=== PATIENT | female | born 1960 | race Caucasian/White ===

== ENCOUNTER 2017-03-20 07:22 | Emergency (ER) | payer OTHER ==
[2017-03-20 08:12] VITALS: BP 135/65
--- NOTE | 2017-03-20 08:34 | UC ---
Complaint Female HPI - HPI Summary HPI Summary: complaint of pain and burning on urination that started 2 days ago increased frequency and urgency denies fever denies abdominal pain hx of chronic back pain hasn't taken any medication for symptoms - History Of Current Complaint Chief Complaint: UCGU Stated Complaint: UTI Time Seen by Provider: 03/20/17 08:26 Hx Obtained From: Patient - Allergies/Home Medications Allergies/Adverse Reactions: Allergies Allergy/AdvReac Type Severity Reaction Status Date / Time Sulfa Antibiotics Allergy Rash Verified 03/20/17 08:04 PMH/Surg Hx/FS Hx/Imm Hx Previously Healthy: Yes - chronic back pain Cardiovascular History: Hypertension - Surgical History Surgical History: Yes Surgery Procedure, Year, and Place: APPY 64;[facility] 90'S; - Family History Known Family History: Positive: None Negative: Cardiac Disease, Hypertension, Diabetes - Social History Occupation: Employed Full-time Lives: With Family Alcohol Use: Occasionally Substance Use Type: None Smoking Status (MU): Never Smoked Tobacco - Immunization History Vaccination Up to Date: Yes Review of Systems Constitutional: Negative Skin: Negative Eyes: Negative ENT: Negative Respiratory: Negative Cardiovascular: Negative Gastrointestinal: Negative Genitourinary: Dysuria, Frequency, Urgency Motor: Negative Neurovascular: Negative Musculoskeletal: Other: - lower back pain Neurological: Negative Psychological: Negative All Other Systems Reviewed And Are Negative: Yes Physical Exam Triage Information Reviewed: Yes Appearance: No Pain Distress, Well-Nourished Vital Signs: Initial Vital Signs Temp 96.9 F 03/20/17 08:00 Pulse 51 03/20/17 08:00 Resp 16 03/20/17 08:00 Pulse Ox 100 03/20/17 08:00 Vital Signs Reviewed: Yes Eyes: Positive: Conjunctiva Clear ENT: Positive: Pharynx normal, TMs normal Neck: Positive: No Lymphadenopathy Respiratory: Positive: Lungs clear, Normal breath sounds, No respiratory distress, No accessory muscle use Cardiovascular: Positive: RRR, No Murmur, Pulses Normal Abdomen Description: Positive: Nontender, Soft. Negative: CVA Tenderness (R), CVA Tenderness (L), Distended, Guarding Bowel Sounds: Positive: Present Musculoskeletal: Positive: No Edema Neurological: Positive: Alert Psychological Exam: Normal Skin Exam: Normal Complaint Female Dx - Course Course Of Treatment: exam completed. UA positive for lueks, blood. will treat with macrobid and pyridium. followup with PCP - Differential Dx/Diagnosis Differential Diagnosis/HQI/PQRI: Urinary Tract Infection Provider Diagnoses: UTI Discharge - Discharge Plan Condition: Stable Disposition: HOME Prescriptions: Nitrofurantoin Monohyd Macro [Macrobid] 100 mg PO BID #10 cap Phenazopyridine TAB* [Pyridium 100 mg TAB*] 100 mg PO TID #6 tab Patient Education Materials: Urinary Tract Infection in Women (ED) Referrals: Rosita King MD [Primary Care Provider] - Additional Instructions: Please start antibiotic and pyridium as directed Increase fluids and rest Take acetaminophen or ibuprofen for fever or pain Please review your discharge instructions. If your symptoms do not improve please call your primary care provider or return to urgent care.
== END 2017-03-20 08:40 | disposition home or self-care (01) ==
LOC: UCEAST 07:22
DX: N39.0 Urinary tract infection, site not specified (principal)
CPT/HCPCS: 81003; 87077; 87086; 87186; 99212; G0463

== ENCOUNTER 2018-03-07 10:04 | Emergency (ER) | payer OTHER ==
[2018-03-07 10:16] VITALS: BP 112/64
--- NOTE | 2018-03-07 10:24 | UC ---
Complaint Female HPI - HPI Summary HPI Summary: Patient urgent care today with 2-3 days of urinary pain and burning urgency and frequency. Denies back pain denies fevers chills nausea and vomiting. Nayan neck tract infection was over a year ago. Patient has been taking Azo with relief of discomfort - History Of Current Complaint Chief Complaint: UCGU Stated Complaint: BACK PAIN,FREQUENT URINATION Time Seen by Provider: 03/07/18 10:18 Hx Obtained From: Patient ?: No Onset/Duration: Sudden Onset, Lasting Days - 2-3, Still Present Timing: Constant Pain Intensity: 6 Pain Scale Used: 0-10 Numeric Character: Burning Aggravating Factor(s): Urination Alleviating Factor(s): Meds - Azo - Allergies/Home Medications Allergies/Adverse Reactions: Allergies Allergy/AdvReac Type Severity Reaction Status Date / Time SULFA ANTIBIOTICS Allergy Rash Uncoded 03/07/18 10:16 Home Medications: Home Medications Metoprolol Succinate XL TAB* [Toprol XL TAB*] 25 mg PO DAILY 03/07/18 [History Confirmed 03/07/18] PMH/Surg Hx/FS Hx/Imm Hx Previously Healthy: No Cardiovascular History: Hypertension - Surgical History Surgical History: None Surgery Procedure, Year, and Place: APPY 64;[place] 90'S; - Family History Known Family History: Positive: None Negative: Cardiac Disease, Hypertension, Diabetes - Social History Occupation: Employed Full-time Lives: With Family Alcohol Use: Occasionally Substance Use Type: None Smoking Status (MU): Never Smoked Tobacco - Immunization History Vaccination Up to Date: Yes Review of Systems Constitutional: Negative Skin: Negative Eyes: Negative ENT: Negative Respiratory: Negative Cardiovascular: Negative Gastrointestinal: Negative Genitourinary: Dysuria, Frequency, Urgency Motor: Negative Neurovascular: Negative Musculoskeletal: Negative Neurological: Negative Psychological: Negative Is Patient Immunocompromised?: No All Other Systems Reviewed And Are Negative: Yes Physical Exam Triage Information Reviewed: Yes Appearance: Well-Appearing, No Pain Distress, Well-Nourished Vital Signs: Initial Vital Signs Temp 97 F 03/07/18 10:14 Pulse 73 03/07/18 10:14 Resp 16 03/07/18 10:14 BP 112/64 03/07/18 10:14 Pulse Ox 99 03/07/18 10:14 Vital Signs Reviewed: Yes Eye Exam: Normal Eyes: Positive: Conjunctiva Clear ENT Exam: Normal ENT: Positive: Normal ENT inspection, Hearing grossly normal. Negative: Trismus , Muffled voice, Hoarse voice Dental Exam: Normal Neck exam: Normal Neck: Positive: Supple, Nontender Respiratory Exam: Normal Respiratory: Positive: Chest non-tender, No respiratory distress, No accessory muscle use Cardiovascular Exam: Normal Cardiovascular: Positive: RRR, Brisk Capillary Refill Abdominal Exam: Other Abdomen Description: Positive: No Organomegaly, Soft, Other: - suprapubic discomfort. Negative: CVA Tenderness (R), CVA Tenderness (L) Bowel Sounds: Positive: Present Musculoskeletal Exam: Normal Musculoskeletal: Positive: Strength Intact, ROM Intact, No Edema Neurological Exam: Normal Neurological: Positive: Alert, Muscle Tone Normal Psychological Exam: Normal Skin Exam: Normal Complaint Female Dx - Course Course Of Treatment: Will send urine for culture, this patient took Azo this morning. We'll treat with Macrobid based on previous culture results and patient's allergy to sulfa. Increase fluids Tylenol ibuprofen Azo for pain and discomfort follow with PCP to emergency department for increasing pain and flank pain nausea vomiting or fevers - Differential Dx/Diagnosis Provider Diagnoses: uti Discharge - Sign-Out/Discharge Documenting (check all that apply): Discharge/Admit/Transfer - Discharge Plan Condition: Stable Disposition: HOME Prescriptions: Nitrofurantoin Monohyd/M-Cryst [Macrobid 100 mg Capsule] 100 mg PO BID #10 cap Patient Education Materials: Phenazopyridine (By mouth), Urinary Tract Infection in Women (ED) Referrals: Rosita King MD [Primary Care Provider] - If Needed - Billing Disposition and Condition Condition: STABLE Disposition: Home
--- NOTE | 2018-03-09 15:32 | UC ---
- Progress Note Progress Note: Final urine culture with sens to Macrobid - no change. Discharge - Sign-Out/Discharge Documenting (check all that apply): Post-Discharge Follow Up - Discharge Plan Condition: Stable Disposition: HOME Prescriptions: Nitrofurantoin Monohyd/M-Cryst [Macrobid 100 mg Capsule] 100 mg PO BID #10 cap Patient Education Materials: Phenazopyridine (By mouth), Urinary Tract Infection in Women (ED) Referrals: Rosita King MD [Primary Care Provider] - If Needed - Billing Disposition and Condition Condition: STABLE Disposition: Home
== END 2018-03-07 10:29 | disposition home or self-care (01) ==
LOC: UCEAST 10:04
DX: N39.0 Urinary tract infection, site not specified (principal); I10 Essential (primary) hypertension; Z88.2 Allergy status to sulfonamides
CPT/HCPCS: 87077; 87086; 87186; 99212; G0463

== ENCOUNTER 2018-07-12 09:15 | Emergency (ER) | payer OTHER ==
[2018-07-12 09:37] VITALS: BP 122/63
--- NOTE | 2018-07-12 10:29 | UC ---
Throat Pain/Nasal Oli HPI - HPI Summary HPI Summary: 58-year-old woman here with a chief complaint of sinus pressure cough runny nose chest congestion and chest tightness. Patient's been sick for about 5 days. She feels like the infection is going into her chest. She started taking Symbicort as she's had some respiratory issues in the past. She's also taking DayQuil which helped somewhat the symptoms. She does feel short of breath and is having a hard time getting the sputum up from her chest. She has had fevers. - History of Current Complaint Chief Complaint: UCGeneralIllness Stated Complaint: COUGH,CONGESTION Time Seen by Provider: 07/12/18 10:15 Pain Intensity: 6 - Allergies/Home Medications Allergies/Adverse Reactions: Allergies Allergy/AdvReac Type Severity Reaction Status Date / Time SULFA ANTIBIOTICS Allergy Rash Uncoded 07/12/18 09:33 Home Medications: Home Medications Acetaminophen [Extra Strength Non-Aspirin] 650 mg PO ONCE PRN 07/12/18 [History Confirmed 07/12/18] Budesonide/Formote 80/4.5(NF) [Symbicort 80/4.5 (NF)] 2 puff INH BID 07/12/18 [ History Confirmed 07/12/18] Cholecalciferol (Vitamin D3) [Vitamin D3] 1,000 unit PO DAILY 07/12/18 [History Confirmed 07/12/18] Dm/Acetaminophen/Doxylamine [Night Cold-Flu Relief Liq Gel] 1 each PO ONCE PRN 07/12/18 [History Confirmed 07/12/18] PMH/Surg Hx/FS Hx/Imm Hx Cardiovascular History: Hypertension, Other - BIGEMINY Respiratory History: Asthma - Surgical History Surgical History: Yes Surgery Procedure, Year, and Place: APPY 64;[place] 90'S; - Family History Known Family History: Positive: None Negative: Cardiac Disease, Hypertension, Diabetes - Social History Alcohol Use: Occasionally Substance Use Type: None Smoking Status (MU): Never Smoked Tobacco - Immunization History Vaccination Up to Date: Yes Review of Systems All Other Systems Reviewed And Are Negative: Yes Constitutional: Positive: Fever Skin: Positive: Negative Eyes: Positive: Negative ENT: Positive: Sore Throat, Nasal Discharge, Sinus Congestion, Sinus Pain/ Tenderness Respiratory: Positive: Shortness Of Breath, Cough Cardiovascular: Positive: Negative Gastrointestinal: Positive: Negative Motor: Positive: Negative Neurovascular: Positive: Negative Musculoskeletal: Positive: Negative Neurological: Positive: Negative Psychological: Positive: Negative Is Patient Immunocompromised?: No Physical Exam Triage Information Reviewed: Yes Appearance: No Pain Distress, Well-Nourished, Ill-Appearing - MILD Vital Signs: Initial Vital Signs Temp 97.6 F 07/12/18 09:28 Pulse 78 07/12/18 09:28 Resp 18 07/12/18 09:28 BP 122/63 07/12/18 09:28 Pulse Ox 99 07/12/18 09:28 Eye Exam: Normal Eyes: Positive: Conjunctiva Clear ENT: Positive: Pharyngeal erythema, Nasal congestion, Nasal drainage, TMs normal Neck exam: Normal Neck: Positive: Supple Respiratory: Positive: Lungs clear, Normal breath sounds, No respiratory distress Cardiovascular Exam: Normal Cardiovascular: Positive: RRR Musculoskeletal Exam: Normal Musculoskeletal: Positive: Strength Intact, ROM Intact Neurological Exam: Normal Neurological: Positive: Alert, Muscle Tone Normal Psychological Exam: Normal Psychological: Positive: Age Appropriate Behavior Skin Exam: Normal Throat Pain/Nasal Course/Dx - Course Course Of Treatment: DISCUSSED VIRAL VERSES BACTERIAL INFECTIONS AND THE ROLE OF ANTIBIOTIS. THE PATIENT PREFERS TO BE ON ANTIBIOTICS AT THIS TIME. - Differential Dx/Diagnosis Provider Diagnoses: BRONCHITIS WITH BRONCHOSPASM Discharge - Sign-Out/Discharge Documenting (check all that apply): Patient Departure All imaging exams completed and their final reports reviewed: No Studies - Discharge Plan Condition: Stable Disposition: HOME Prescriptions: Albuterol HFA INHALER* [Ventolin HFA Inhaler*] 2 puff INH Q4H PRN #1 mdi PRN Reason: Wheezing Azithromyxin MAEVE (NF) [Z-Maeve (Zithromax) 250 mg tabs #6] 2 tab PO .TODAY, THEN 1 DAILY #6 tab Patient Education Materials: Acute Bronchitis (ED), Bronchospasm (ED) Referrals: Rosita King MD [Primary Care Provider] - - Billing Disposition and Condition Condition: STABLE Disposition: Home
== END 2018-07-12 10:45 | disposition home or self-care (01) ==
LOC: UCEAST 09:15
DX: J40 Bronchitis, not specified as acute or chronic (principal); J98.01 Acute bronchospasm; J45.909 Unspecified asthma, uncomplicated; Z88.2 Allergy status to sulfonamides
CPT/HCPCS: 99212; G0463

== ENCOUNTER 2019-02-18 07:20 | Emergency (ER) | payer OTHER ==
[2019-02-18 07:33] VITALS: BP 110/57
--- NOTE | 2019-02-18 08:26 | UC ---
Complaint Female HPI - HPI Summary HPI Summary: 58-year-old female comes in with a chief complaint of burning with urination and urinary urgency since yesterday. No fevers or chills. She does feel some bladder spasm when she urinates otherwise she has no abdominal pain no flank pain. Feels well otherwise. Patient reports she's had urinary tract infections before and this is what it feels like. - History Of Current Complaint Chief Complaint: UCGU Stated Complaint: URINARY ISSUE Time Seen by Provider: 02/18/19 08:19 Pain Intensity: 5 - Allergies/Home Medications Allergies/Adverse Reactions: Allergies Allergy/AdvReac Type Severity Reaction Status Date / Time SULFA ANTIBIOTICS Allergy Rash Uncoded 02/18/19 07:32 Home Medications: Home Medications Naproxen Sodium [Aleve] 220 mg PO ONCE PRN 02/18/19 [History Confirmed 02/18/19] Pumpkin Seed Extract/Soy Germ [Azo Bladder Control Capsule] 2 tab PO ONCE PRN [History Confirmed 02/18/19] PMH/Surg Hx/FS Hx/Imm Hx Previously Healthy: Yes Cardiovascular History: Hypertension Respiratory History: Asthma - Surgical History Surgical History: Yes Surgery Procedure, Year, and Place: [facility]Y 64;[place] 90'S; - Family History Known Family History: Positive: None Negative: Cardiac Disease, Hypertension, Diabetes - Social History Alcohol Use: Weekly Substance Use Type: None Smoking Status (MU): Never Smoked Tobacco - Immunization History Vaccination Up to Date: Yes Review of Systems All Other Systems Reviewed And Are Negative: Yes Constitutional: Positive: Negative Skin: Positive: Negative Eyes: Positive: Negative ENT: Positive: Negative Respiratory: Positive: Negative Cardiovascular: Positive: Negative Gastrointestinal: Positive: Other - SEE HPI Genitourinary: Positive: Dysuria, Frequency, Urgency Motor: Positive: Negative Neurovascular: Positive: Negative Musculoskeletal: Positive: Negative Neurological: Positive: Negative Psychological: Positive: Negative Is Patient Immunocompromised?: No Physical Exam Triage Information Reviewed: Yes Appearance: Well-Appearing, No Pain Distress, Well-Nourished Vital Signs: Initial Vital Signs Temp 97.8 F 02/18/19 07:29 Pulse 70 02/18/19 07:29 Resp 18 02/18/19 07:29 BP 110/57 02/18/19 07:29 Pulse Ox 97 02/18/19 07:29 Vital Signs Reviewed: Yes Eye Exam: Normal Eyes: Positive: Conjunctiva Clear Neck: Positive: Supple Respiratory: Positive: Lungs clear, Normal breath sounds, No respiratory distress Cardiovascular: Positive: RRR Abdomen Description: Negative: CVA Tenderness (R), CVA Tenderness (L) Musculoskeletal Exam: Normal Musculoskeletal: Positive: Strength Intact, ROM Intact Neurological: Positive: Alert, Muscle Tone Normal Psychological Exam: Normal Psychological: Positive: Normal Response To Family, Age Appropriate Behavior Skin Exam: Normal Complaint Female Dx - Differential Dx/Diagnosis Provider Diagnosis: UTI (urinary tract infection) Discharge - Sign-Out/Discharge Documenting (check all that apply): Patient Departure All imaging exams completed and their final reports reviewed: No Studies - Discharge Plan Condition: Stable Disposition: HOME Prescriptions: Nitrofurantoin Monohyd/M-Cryst [Macrobid 100 mg Capsule] 100 mg PO BID #14 cap Patient Education Materials: Urinary Tract Infection in Women (ED) Referrals: Rosita King MD [Primary Care Provider] - Additional Instructions: FOLLOW UP WITH YOUR DOCTOR IF NOT COMPLETELY IMPROVED. GET RECHECKED SOONER IF YOUR CONDITION WORSENS OR ANY QUESTIONS OR CONCERNS. - Billing Disposition and Condition Condition: STABLE Disposition: Home
== END 2019-02-18 08:32 | disposition home or self-care (01) ==
LOC: UCEAST 07:20
DX: N39.0 Urinary tract infection, site not specified (principal); I10 Essential (primary) hypertension; Z87.440 Personal history of urinary (tract) infections; Z88.2 Allergy status to sulfonamides
CPT/HCPCS: 87077; 87086; 87186; 99212; G0463

== ENCOUNTER 2019-05-24 09:05 | Emergency (ER) | payer OTHER ==
--- OUTSIDE RECORDS SUMMARY | 2019-05-24 09:10 | XMS REPORT | Continuity of Care Document ---
:1960 External Reference #:[id number] Author Name Jorge Alberto Montilla MD (transmitted by agent of provider Avril Vazquez) Address [address] [place] [address] Care Team Providers Name Role Phone Rosita King MD - Internal Care Team Information [place] [phone] Medicine Larisa Fong MD - Physical Care Team Information [facility] Problems Active Problems Provider Date Palpitations Rosita King M.D. Onset: 07/06/2014 Social History Type Date Description Comments Sex Unknown ETOH Use Drinks 3 Alcoholic Beverages Per Week Tobacco Use Start: Unknown Patient has never smoked Recreational Drug Use Denies Drug Use Smoking Status Reviewed: 04/21/19 Patient has never smoked Allergies, Adverse Reactions, Alerts Active Allergies Reaction Severity Comments Date Sulfa Antibiotics Urticaria Severe 02/23/2014 Medications Active Medications SIG Qnty Indications Ordering Provider Date Diclofenac Sodium apply 2 grams to 200gm M25.511 Popeye Landry NP 04/08/2019 1% affected area Gel twice daily Metoprolol Succinate Take One Tablet 90tabs Rosita King, 06/20/2017 ER By Mouth Every M.D. 25mg Tablets ER Day 24HR Ibuprofen take one tablet 30tabs M25.562 Popeye Landry NP 04/26/2016 600mg by mouth three Tablets times a day as needed with food Symbicort 2 puffs twice a 10.200gm R05 Rosita King, day rinse mouth M.D. 80-4.5mcg/Act after using as Aerosol needed Calcium Chew one by mouth 90units Unknown 500mg every day Vitamin D High 1 by mouth every Unknown Potency day 1999Units Capsules History Medications Naproxen 1 tablet with 30tabs M25.511 Popeye Landry NP 12/08/2018 - 500mg food by mouth 12/22/2018 Tablets twice a day Immunizations CPT Code Status Date Vaccine Lot # [id number] Given 05/31/2015 Pneumonia Vaccine [id number] Given 10/11/2014 Hepatitis A Vaccine Adult Dosage [id number] Given 02/23/2014 Hepatitis A Vaccine Adult Dosage [id number] Vital Signs Date Vital Result Comment 04/21/2019 2:50pm Height 67 inches 5'7" Weight 147.00 lb Heart Rate 55 /min BP Systolic 102 mmHg BP Diastolic 66 mmHg Body Temperature 98.6 F Pain Level 6 BMI (Body Mass Index) 23.0 kg/m2 04/08/2019 3:47pm Height 67 inches 5'7" Weight 147.12 lb Heart Rate 63 /min BP Systolic 121 mmHg BP Diastolic 72 mmHg Body Temperature 98.4 F O2 % BldC Oximetry 98 % BMI (Body Mass Index) 23.0 kg/m2 Results Test Date Facility Test Result H/L Range Note Urine Culture And 02/18/2019 [facility] Urine Culture SEE RESULT 1, [address] [place] [id number] [phone] 1 [id number] 2 SEE RESULT BELOW Name: J LUIS MASON : [address]: Shahzad Silva MD Acct: [id number] Unit: [id number] AGE: 58 Location: [facility] Re02/18/19 SEX: F Status: DEP ER SPEC: [id number] KIRILL: 02/18/[address]: Shahzad Silva MD REQ: [id number] RECD: 02/18/19 STATUS: RADHA HART DR: [facility] Rosita King MD _ SOURCE: URINE SPDESC: ORDERED: Urine Culture COMMENTS: [id number] Procedure Result Reported Site Urine Culture Final 02/20/19- 0856 ML Organism 1 ESCHERICHIA COLI [place] Count >100,000 (Many) CFU/ML 1. ESCHERICHIA COLI [facility].I.C. RX --------- ------ Ampicillin <=2 S Cefazolin <=4 S Cefepime <=1 S Ceftriaxone <=1 S Ciprofloxacin <=0.25 S Gentamicin <=1 S Levofloxacin <=0.12 S Meropenem <=0.25 S Nitrofurantoin <=16 S Tetracycline <=1 S Pipercillin/Tazobactam <=4 S Trimethoprim/Sulfamethoxazole <=20 S Amoxicillin/Clavulanic Acid <=2 S Aztreonam <=1 S Contact the Microbiology Department for any additional antibiotic reporting. * [facility] - Main Lab . END OF REPORT DEPARTMENT OF PATHOLOGY, [address] [place] [address] Lalo Rajan M.D. Director [facility] # [id number] Procedures Date Code Description Status 07/02/2018 [id number] Mammogram Completed 06/28/2017 [id number] Mammogram Completed 07/22/2015 [id number] Mammogram Completed 04/20/2013 [id number] Mammogram Completed 02/19/2013 [id number] Bone Mineral Density Test Completed 10/09/2010 [id number] Colonoscopy Completed Medical Devices Description No Information Available Encounters Type Date Location Provider Dx Diagnosis Office Visit 04/08/2019 [facility] Internal Popeye Landry NP M25.511 Pain in right 3:40p Medicine - [facility] shoulder Office Visit 12/08/2018 [facility] Internal Popeye Landry NP M25.511 Pain in right 4:20p Medicine - [facility] shoulder Assessments Date Code Description Provider 04/21/2019 M25.511 Pain in right shoulder Jorge Alberto Montilla MD 04/21/2019 M75.41 Impingement syndrome of right shoulder Jorge Alberto Montilla MD 04/08/2019 M25.511 Pain in right shoulder Popeye Landry NP 12/08/2018 M25.511 Pain in right shoulder Popeye Landry NP Plan of Treatment Future Appointment(s):09/03/2019 8:00 am - Rosita King M.D. at [facility] Internal Medicine - [facility]04/21/2019 - Jorge Alberto Montilla MDM25.511 Pain in right axuvprwgU24.41 Impingement syndrome of right shoulderNew Xrays:MRI Shoulder Right W/O, Ordered: 04/21/19Follow up:Follow up: after MRI Functional Status Description No Information Available Mental Status Description No Information Available Referrals Refer to Reason for Referral Status Appt Date Jorge Alberto Montilla MD Scheduled 04/21/[address] [place] [phone] [phone]
--- OUTSIDE RECORDS SUMMARY | 2019-05-24 09:10 | XMS REPORT | Continuity of Care Document ---
:1960 External Reference #:[id number] Author Name Jorge Alberto Montilla MD (transmitted by agent of provider Fara Fleming) Address [address] [place] [address] Care Team Providers Name Role Phone Rosita King MD - Internal Care Team Information Refractory Technician [phone] Medicine Larisa Fong MD - Physical Care Team Information Refractory Technician Medicine & Rehabilitation Problems Active Problems Provider Date Palpitations Rosita King M.D. Onset: 07/06/2014 Strain of muscle of long head of biceps Jorge Alberto Montilla MD Onset: 05/05/2019 brachii Strain of rotator cuff capsule Jorge Alberto Montilla MD Onset: 05/05/2019 Social History Type Date Description Comments Sex Unknown ETOH Use Drinks 3 Alcoholic Beverages Per Week Tobacco Use Start: Unknown Patient has never smoked Recreational Drug Use Denies Drug Use Smoking Status Reviewed: 05/05/19 Patient has never smoked Allergies, Adverse Reactions, Alerts Active Allergies Reaction Severity Comments Date Sulfa Antibiotics Urticaria Severe 02/23/2014 Medications Active Medications SIG Qnty Indications Ordering Provider Date Diclofenac Sodium apply 2 grams to 200gm M25.511 Popeye Landry NP 04/08/2019 1% affected area Gel twice daily Metoprolol Succinate Take One Tablet 90tabs Rosita King 06/20/2017 ER By Mouth Every M.D. 25mg Tablets ER Day 24HR Ibuprofen take one tablet 30tabs M25.562 Popeye Landry NP 04/26/2016 600mg by mouth three Tablets times a day as needed with food Symbicort 2 puffs twice a 10.200gm R05 Rosita Cotton, day rinse mouth M.D. 80-4.5mcg/Act after using as Aerosol needed Calcium Chew one by mouth 90units Unknown 500mg every day Vitamin D High 1 by mouth every Unknown Potency day 2000Units Capsules History Medications Naproxen 1 tablet with 30tabs M25.511 Popeye Landry NP 12/08/2018 - 500mg food by mouth 12/22/2018 Tablets twice a day Immunizations CPT Code Status Date Vaccine Lot # [id number] Given 05/31/2015 Pneumonia Vaccine [id number] Given 10/11/2014 Hepatitis A Vaccine Adult Dosage [id number] Given 02/23/2014 Hepatitis A Vaccine Adult Dosage [id number] Vital Signs Date Vital Result Comment 05/05/2019 2:19pm Height 67 inches 5'7" Weight 147.00 lb BP Systolic 118 mmHg BP Diastolic 76 mmHg Respiratory Rate 18 /min Pain Level 6 BMI (Body Mass Index) 23.0 kg/m2 04/21/2019 2:50pm Height 67 inches 5'7" Weight 147.00 lb Heart Rate 55 /min BP Systolic 102 mmHg BP Diastolic 66 mmHg Body Temperature 98.6 F Pain Level 6 BMI (Body Mass Index) 23.0 kg/m2 Results Test Date Facility Test Result H/L Range Note Urine Culture And 02/18/2019 [facility] Urine Culture SEE RESULT 1, [address] [place], [place] [id number] [phone] 1 [id number] 2 SEE RESULT BELOW Name: J LUIS MASON Donato : [address]: Shahzad Silva MD Acct: [id number] Unit: [id number] AGE: 58 Location: [facility] Re02/18/19 SEX: F Status: DEP ER SPEC: [id number] [place]: 02/18/19 [facility] DR: Shahzad Silva MD REQ: [id number] RECD: 02/18/19 STATUS: RADHA HART DR: [facility] Rosita King MD _ SOURCE: URINE SPDESC: ORDERED: Urine Culture COMMENTS: [id number] Procedure Result Reported Site Urine Culture Final 02/20/19- 0856 ML Organism 1 ESCHERICHIA COLI [place] Count >100,000 (Many) CFU/ML 1. ESCHERICHIA COLI [...] . END OF REPORT DEPARTMENT OF PATHOLOGY, [address] [place] [address] Lalo Rajan M.D. Director [facility] # [id number] Procedures Date Code Description Status 05/05/2019 50464 Inject/Drain Joint/Bursa Major W/O US Completed 07/02/2018 07045962 Mammogram Completed 06/28/2017 10076548 Mammogram Completed 07/22/2015 05468767 Mammogram Completed 04/20/2013 98380630 Mammogram Completed 02/19/2013 [id number] Bone Mineral Density Test Completed 10/09/2010 83263977 Colonoscopy Completed Medical Devices Description No Information Available Encounters Type Date Location Provider Dx Diagnosis Office Visit 04/21/2019 Orthopedic Jorge Alberto Montilla MD M25.511 Pain in right 3:[facility] M75.41 Impingement syndrome of right shoulder Office Visit 04/08/2019 3:40p [facility] Internal Popeye Landry M25.511 Pain in right Medicine - [facility] [employer] shoulder Office Visit 12/08/2018 4:20p Marie Barragan5.511 Pain in right Medicine - [facility] [employer] shoulder Assessments Date Code Description Provider 05/05/2019 S46.011A Strain of muscle(s) and tendon(s) of the rotator Jorge Alberto Montilla MD cuff of right shoulder, initial encounter 05/05/2019 S46.111A Strain of muscle, fascia and tendon of long head Jorge Alberto Montilla MD of biceps, right arm, initial encounter 04/21/2019 M25.511 Pain in right shoulder Jorge Alberto Montilla MD 04/21/2019 M75.41 Impingement syndrome of right shoulder Jorge Alberto Montilla MD 04/08/2019 M25.511 Pain in right shoulder Popeye Landry NP 12/08/2018 M25.511 Pain in right shoulder Popeye Landry NP Plan of Treatment Future Appointment(s):06/09/2019 3:15 pm - Jorge Alberto Montilla MD at [facility]09/03/2019 8:00 am - Roista King M.D. at [facility] Internal Medicine - [facility]05/05/2019 - Jorge Alberto Montilla MDS46.011A Strain of muscle(s) and tendon(s) of the rotator cuff of right shoulder, initial encounterFollow up: Follow up: 5 sxgipG78.111A Strain of muscle, fascia and tendon of long head of biceps, right arm, initial encounter Functional Status Description No Information Available Mental Status Description No Information Available Referrals Refer to Dr Reason for Referral Status Appt Date Jorge Alberto Montilla MD Scheduled 04/21/[address] [place] [phone]
--- OUTSIDE RECORDS SUMMARY | 2019-05-24 09:10 | XMS REPORT | Continuity of Care Document ---
:1960 External Reference #:[id number] Author Name Betzaida Kelly Care Team Providers Name Role Phone Rosita King MD Primary Care Physician Unavailable Payers Date Identification Numbers Payment Provider Subscriber Policy Number: [id number] [employer]-[facility] Kathleen Mason PayID: [id number] [address] [place] [address] Effective: 2015 Policy Number: [id number] [facility] Kathleen Mason Group Number: [id number] [address] PayID: [id number] [place] [address] Effective: 2012 Policy Number: [id number] [employer] Kathleen Mason Expires: 2014 Group Number: [id number] [address] PayID: [id number] [place] [address] Effective: 2005 Policy Number: [id number] [facility] CHAVEZ Abisai Mason Expires: 2012 PayID: [id number] [address] [address] [place]IS Ludwig [address] Problems Active Problems Provider Date Palpitations Rosita King M.D. Onset: 07/06/2014 Family History Date Family Member(s) Observation Comments Father Chronic Obstructive Pulmonary Disease (COPD) : (age 87 Father due to COPD Years) Mother Hypertension Mother Arthritis living at age 84 Mother Deep Venous Thrombosis (DVT) Mother TIA First Brother Alive And Well First Sister Breast Cancer at age 56 and still menstruating, lumpectomy, tested neg for BRCA Social History Type Date Description Comments Sex Unknown Marital Status 2 kids Lives With Occupation triage assistant Admissions advising in the [employer] ETOH Use Drinks 3 Alcoholic Beverages Per Week Tobacco Use Start: Unknown Patient has never smoked Recreational Drug Use Denies Drug Use Smoking Status Reviewed: 04/08/19 Patient has never smoked Allergies, Adverse Reactions, Alerts Active Allergies Reaction Severity Comments Date Sulfa Antibiotics Urticaria Severe 02/23/2014 Medications Active Medications SIG Qnty Indications Ordering Provider Date Diclofenac Sodium apply 2 grams to 200gm M25.511 Popeye Landry NP 04/08/2019 1% affected area Gel twice daily Metoprolol Succinate Take One Tablet 90tabs Rosita Fernando, 06/20/2017 ER By Mouth Every M.D. 25mg Tablets ER Day 24HR Ibuprofen take one tablet 30tabs M25.562 Popeye Landry NP 04/26/2016 600mg by mouth three Tablets times a day as needed with food Symbicort 2 puffs twice a 10.200gm R05 Rosita Fernando, day rinse mouth M.D. 80-4.5mcg/Act after using as Aerosol needed Calcium Chew one by mouth 90units Unknown 500mg every day Vitamin D High 1 by mouth every Unknown Potency day 2000Units Capsules History Medications Naproxen 1 tablet with 30tabs M25.511 Popeye Landry NP 12/08/2018 - 500mg Tablets food by mouth 12/22/2018 twice a day Triamcinolone apply thin film 15gm Rosita 10/04/2018 - Acetonide twice daily Justa King 04/07/2019 0.1% Cream Macrobid 1 tab by mouth 14caps R30.0 Juan Russell 06/24/2017 - 100mg Capsules twice a day x 7 Justa Rose 07/03/2017 days Cyclobenzaprine HCL 1-2 tablets at 30tabs M54.9 Rosita 11/23/2016 - 5mg bedtime Justa King 02/08/2017 Tablets Meclizine HCL 1 tablet daily as 30tabs H81.11 Theodora Robert 06/01/2016 - 25mg needed N.P. 06/15/2016 Tablets Astelin 1 - 2 inhalations 30ml H81.11 Thoedora Robert, 06/01/2016 - 137mcg/[place] in each nostril N.P. 11/23/2016 Solution once daily Tessalon Perles 1 tab by mouth 30caps R05 Paulo Josh, 10/21/2015 - 100mg twice a day M.DZiggy 12/26/2015 Capsules Medrol (Sawyer) take 6 tabs day 21tabs Popeye Landry NP 03/21/2015 - 4mg Tablets 1, 5 tabs day 2, 03/28/2015 4 tabs day 3, 3 tabs day 4, 2 tabs day 5, and 1 tab day 6. Tramadol HCL 1-2 tablets every 30tabs Popeye Landry NP 03/21/2015 - 50mg Tablets 6 hours as needed 04/01/2015 for pain. Fluticasone Propionate 2 sprays each 16gm 750.26 Popeye Landry NP 2014 - nostril every day 12/26/2015 50mcg/Act Suspension R05 Amoxicillin/Clavulanate 1 tablet 14tabs 788.1 Rosita 11/01/2014 - Potassium twice daily Justa King 12/23/2014 875-125mg Tablets for 7 days Fluticasone Propionate 1 sprays each 16gm 477.9 Theodora Jakob, 10/22/2014 - 50mcg/Act nostril daily N.P. 12/23/2014 Suspension Fluticasone Propionate 2 sprays each 16gm 477.9 Theodora Jakob, 10/11/2014 - 50mcg/Act nostril daily N.P. 10/16/2014 Suspension as needed Vivotif Nayeli Vaccine 1 by mouth 4caps V65.49 Rosita 02/23/2014 - Capsules DR every day Justa King 10/11/2014 every other day. Finish this at least one week before travel Fexofenadine HCL 1 by mouth 30tabs Unknown - 180mg Tablets every day 10/11/2014 Sarah Allergy 1 by mouth Unknown - 60mg Tablets every day 06/08/2018 Atenolol Take One 30tabs Rosita - 25mg Tablets Tablet By Justa King 06/20/2017 Mouth Every Day Methocarbamol Take 1 2 Hetal, - 750mg Tablets Tablets By MD Larisa 06/08/2018 Mouth Every 6 Hours as Needed For Muscle Spasms Immunizations CPT Code Status Date Vaccine Lot # [id number] Given 05/31/2015 Pneumonia Vaccine [id number] Given 10/11/2014 Hepatitis A Vaccine Adult Dosage [id number] Given 02/23/2014 Hepatitis A Vaccine Adult Dosage [id number] Vital Signs Date Vital Result Comment 04/08/2019 3:47pm Height 67 inches 5'7" Weight 147.12 lb Heart Rate 63 /min BP Systolic 121 mmHg BP Diastolic 72 mmHg Body Temperature 98.4 F O2 % BldC Oximetry 98 % BMI (Body Mass Index) 23.0 kg/m2 12/08/2018 4:25pm Height 67 inches 5'7" Weight 148.50 lb Heart Rate 67 /min BP Systolic 109 mmHg BP Diastolic 65 mmHg Body Temperature 96.9 F O2 % BldC Oximetry 97 % BMI (Body Mass Index) 23.3 kg/m2 06/09/2018 9:17am Height 67 inches 5'7" Weight 154.00 lb Heart Rate 80 /min BP Systolic Sitting 117 mmHg BP Diastolic Sitting 67 mmHg O2 % BldC Oximetry 99 % BMI (Body Mass Index) 24.1 kg/m2 Waist Circumference 33 06/24/2017 3:23pm Height 67 inches 5'7" Weight 157.00 lb Heart Rate 63 /min BP Systolic Sitting 125 mmHg BP Diastolic Sitting 75 mmHg Body Temperature 97.8 F O2 % BldC Oximetry 98 % BMI (Body Mass Index) 24.6 kg/m2 06/06/2017 9:21am Height 67 inches 5'7" Weight 157.56 lb Heart Rate 51 /min BP Systolic 108 mmHg BP Diastolic 60 mmHg Body Temperature 97.8 F O2 % BldC Oximetry 97 % BMI (Body Mass Index) 24.7 kg/m2 11/23/2016 8:43am Weight 161.00 lb Heart Rate 54 /min BP Systolic Sitting 122 mmHg BP Diastolic Sitting 70 mmHg Respiratory Rate 16 /min Body Temperature 98.4 F O2 % BldC Oximetry 98 % 06/04/2016 2:40pm Height 66.5 inches 5'6.50" Weight 154.00 lb Heart Rate 70 /min BP Systolic 106 mmHg BP Diastolic 61 mmHg Body Temperature 98.6 F O2 % BldC Oximetry 98 % BMI (Body Mass Index) 24.5 kg/m2 06/01/2016 4:24pm Weight 154.00 lb Heart Rate 58 /min BP Systolic Sitting 118 mmHg BP Diastolic Sitting 64 mmHg Respiratory Rate 15 /min Body Temperature 98.4 F O2 % BldC Oximetry 99 % 04/26/2016 8:35am Weight 155.00 lb Heart Rate 61 /min BP Systolic Sitting 99 mmHg BP Diastolic Sitting 65 mmHg Body Temperature 98.2 F O2 % BldC Oximetry 97 % 10/21/2015 2:50pm Weight 166.25 lb Heart Rate 68 /min BP Systolic Sitting 108 mmHg BP Diastolic Sitting 66 mmHg Body Temperature 98.1 F O2 % BldC Oximetry 99 % 05/31/2015 9:07am Height 67 inches 5'7" Weight 165.00 lb Heart Rate 43 /min BP Systolic 115 mmHg BP Diastolic 65 mmHg Body Temperature 98.8 F BMI (Body Mass Index) 25.8 kg/m2 03/18/2015 4:02pm Weight 163.00 lb Heart Rate 53 /min BP Systolic Sitting 101 mmHg BP Diastolic Sitting 60 mmHg Body Temperature 97.6 F 01/05/2015 3:53pm Height 67 inches 5'7" Weight 163.00 lb Heart Rate 61 /min BP Systolic 106 mmHg BP Diastolic 68 mmHg Body Temperature 98.3 F BMI (Body Mass Index) 25.5 kg/m2 12/23/2014 3:48pm Weight 163.00 lb Heart Rate 58 /min BP Systolic Sitting 126 mmHg BP Diastolic Sitting 72 mmHg Body Temperature 97.4 F 11/01/2014 4:17pm Height 67 inches 5'7" Weight 163.00 lb Heart Rate 53 /min BP Systolic 111 mmHg BP Diastolic 69 mmHg Body Temperature 98.4 F BMI (Body Mass Index) 25.5 kg/m2 10/11/2014 3:45pm Height 67 inches 5'7" Weight 166.00 lb Heart Rate 59 /min BP Systolic 115 mmHg BP Diastolic 72 mmHg Body Temperature 98.3 F O2 % BldC Oximetry 98 % BMI (Body Mass Index) 26.0 kg/m2 02/23/2014 2:49pm Height 67 inches 5'7" Weight 160.00 lb Heart Rate 72 /min BP Systolic Sitting 106 mmHg BP Diastolic Sitting 74 mmHg Body Temperature 98.4 F BMI (Body Mass Index) 25.1 kg/m2 Results Test Date Facility Test Result H/L Range Note Urine Culture And 02/18/2019 [facility] Urine Culture SEE RESULT 1, [address] [place] [address] [phone] Lipid Profile 06/06/2018 [facility] Triglycerides 79 mg/dL 3 (Trig/Chol/HDL) [address] [place] [address] [phone] Cholesterol 196 mg/dL 4 HDL Cholesterol 69.3 mg/dL 5 LDL Cholesterol 111 mg/dL 6 Laboratory test 06/06/2018 [facility] Glucose 96 mg/dL Normal 70-[address] [place] [address] [phone] Urine Culture And 03/07/2018 [facility] Urine SEE 7, [address] [place] [address] BELOW [phone] Urine Culture And 06/24/2017 [facility] Urine SEE 9, [address] [place] [address] BELOW [phone] Urinalysis 06/24/2017 [facility] Urine Color Yellow Normal Profile [address] [place] [address] [phone] Urine Appearance Cloudy Normal Urine Specific [place] 1.013 Normal 1.010-1.030 Urine pH 5.0 Normal 5-9 Urine Urobilinogen Negative Normal Negative Urine Ketones Negative Normal Negative Urine Protein Negative Normal Negative Urine Leukocytes 3+ Abnormal Negative Urine Blood 2+ Abnormal Negative Urine Nitrite Negative Normal Negative Urine Bilirubin Negative Normal Negative Urine Glucose Negative Normal Negative Urine White Blood Cell 3+(>20/hpf) Abnormal Absent Urine Red Blood Cell 2+(6-10/hpf) Abnormal Absent Urine Bacteria 1+ Abnormal Absent Urine Squamous Epithelial Cell Present Abnormal Absent Poc Urinalysis 03/20/2017 [facility] Poc Glucose, Negative Normal Negative [address] [place] [address] [phone] Poc Bilirubin, Urine Negative Normal Negative Poc Ketone, Urine Negative Normal Negative Poc Specific [place], Urine 1.015 Normal 1.010-1.030 Poc Blood, Urine 2+ Abnormal Negative Poc pH, Urine 6.5 Normal 5-9 Poc Protein, Urine 1+ Abnormal Negative Poc Urobilinogen, Urine 1.0 Normal Negative Poc Nitrite, Urine Negative Normal Negative Poc Leukocytes, Urine 3+ Abnormal Negative Poc Color, Urine Yellow Normal Poc Clarity, Urine Clear Normal 11 Urine Culture And 03/20/2017 [facility] Urine SEE RESULT 12 , [address] [place] [address] [phone] CBC Auto Diff 02/19/2017 [facility] White Blood 4.5 Normal 3.5 - [address] Count 10^3/uL 10.8 [place] [address] [phone] Red Blood Count 4.17 10^6/uL Normal 4.0-5.4 Hemoglobin 12.5 g/dL Normal 12.0-16.0 Hematocrit 38 % Normal 35-47 Mean Corpuscular Volume 90 fL Normal 80-97 Mean Corpuscular Hemoglobin 30 pg Normal 27-31 Mean Corpuscular HGB Conc 33 g/dL Normal 31-36 Red Cell Distribution Width 13 % Normal 10.5-15 Platelet Count 182 10^3/uL Normal 150-450 Mean Platelet Volume 10 um3 Normal 7.4-10.4 Abs Neutrophils 2.2 10^3/uL Normal 1.5-7.7 Abs Lymphocytes 1.6 10^3/uL Normal 1.0-4.8 Abs Monocytes 0.4 10^3/uL Normal 0-0.8 Abs Eosinophils 0.2 10^3/uL Normal 0-0.6 Abs Basophils 0 10^3/uL Normal 0-0.2 Abs Nucleated RBC 0.01 10^3/uL Normal Granulocyte % 48.8 % Normal 38-83 Lymphocyte % 36.6 % Normal 25-47 Monocyte % 8.5 % Normal 1-9 Eosinophil % 5.4 % Normal 0-6 Basophil % 0.7 % Normal 0-2 Nucleated Red Blood Cells % 0.1 Normal Comp Metabolic 02/19/2017 [facility] Sodium 140 mmol/L Normal 133-[address] [place] [address] [phone] Potassium 4.2 mmol/L Normal 3.5-5.0 Chloride 108 mmol/L Normal 101-111 Co2 Carbon Dioxide 25 mmol/L Normal 22-32 Anion Gap 7 mmol/L Normal 2-11 Glucose 99 mg/dL Normal 70-100 Blood Urea Nitrogen 20 mg/dL Normal 6-24 Creatinine 0.69 mg/dL Normal 0.51-0.95 BUN/Creatinine Ratio 29.0 High 8-20 Calcium 8.9 mg/dL Normal 8.6-10.3 Total Protein 6.3 g/dL Low 6.4-8.9 Albumin 3.9 g/dL Normal 3.2-5.2 Globulin 2.4 g/dL Normal 2-4 Albumin/Globulin Ratio 1.6 Normal 1-3 Total Bilirubin 0.70 mg/dL Normal 0.2-1.0 Alkaline Phosphatase 84 U/L Normal 34-104 Alt 14 U/L Normal 7-52 Ast 17 U/L Normal 13-39 Egfr Non- 88.0 Normal >60 Egfr 113.2 Normal >60 14 Laboratory test 02/19/2017 [facility] C Reactive 2.91 mg/L Normal < 5.00 15 finding [address] [facility] [place] [address] [phone] Erythrocyte Sed Rate 19 mm/Hr Normal 0-30 16 Lipid Profile 02/19/2017 [facility] Triglycerides 97 mg/dL Normal 17 (Trig/Chol/HDL) [address] [place] [address] [phone] Cholesterol 165 mg/dL Normal 18 HDL Cholesterol 60.7 mg/dL Normal 19 LDL Cholesterol 85 mg/dL Normal 20 Laboratory test 05/29/2016 [facility] Glucose 97 mg/dL Normal 70-100 finding [address] [place] [address] [phone] Lipid Profile 05/29/2016 [facility] Triglycerides 76 mg/dL Normal 21 (Trig/Chol/HDL) [address] [place] [address] [phone] Cholesterol 182 mg/dL Normal 22 HDL Cholesterol 60.4 mg/dL Normal 23 LDL Cholesterol 106 mg/dL Normal 24 Laboratory 05/31/2015 [facility] HPV Rna Negative Normal Negative 25 test finding [address] Ww/[place] [address] Genotype [phone] Cytology SEE RESULT BELOW 26 Laboratory test 05/30/2015 [facility] Glucose 98 mg/dL Normal 70-100 finding [address] [place] [address] [phone] Lipid Profile 05/30/2015 [facility] Triglycerides 103 mg/dL Normal 27 (Trig/Chol/HDL) [address] [place] [address] [phone] Cholesterol 183 mg/dL Normal 28 HDL Cholesterol 65.4 mg/dL Normal 29 LDL Cholesterol 97 mg/dL Normal 30 Comp Metabolic 01/11/2015 [facility] Sodium 138 mmol/L Normal 133-[address] [place] [address] [phone] Potassium 3.8 mmol/L Normal 3.5-5.0 Chloride 106 mmol/L Normal 101-111 Co2 Carbon Dioxide 26 mmol/L Normal 22-32 Anion Gap 6 mmol/L Normal 2-11 Glucose 119 mg/dL High 70-100 Blood Urea Nitrogen 11 mg/dL Normal 6-24 Creatinine 0.75 mg/dL Normal 0.51-0.95 BUN/Creatinine Ratio 14.7 Normal 8-20 Calcium 9.0 mg/dL Normal 8.6-10.3 Total Protein 6.2 g/dL Low 6.4-8.9 Albumin 4.0 g/dL Normal 3.2-5.2 Globulin 2.2 g/dL Normal 2-4 Albumin/Globulin Ratio 1.8 Normal 1-3 Total Bilirubin 0.40 mg/dL Normal 0.2-1.0 Alkaline Phosphatase 101 U/L Normal 34-104 Alt 19 U/L Normal 7-52 Ast 17 U/L Normal 13-39 Egfr Non- 80.5 Normal >60 Egfr 103.6 Normal >60 31 CBC Auto 01/11/2015 [facility] White Blood 5.3 10^3/uL Normal 4.8-10.[address] [place] [address] [phone] Red Blood Count 4.14 10^6/uL Normal 4.0-5.4 Hemoglobin 12.8 g/dL Normal 12.0-16.0 Hematocrit 39 % Normal 35-47 Mean Corpuscular Volume 93 fL Normal 80-97 Mean Corpuscular Hemoglobin 31 pg Normal 27-31 Mean Corpuscular HGB Conc 33 g/dL Normal 31-36 Red Cell Distribution Width 13 % Normal 10.5-15 Platelet Count 212 10^3/uL Normal 150-450 Mean Platelet Volume 9 um3 Normal 7.4-10.4 Abs Neutrophils 2.9 10^3/uL Normal 1.5-7.7 Abs Lymphocytes 1.7 10^3/uL Normal 1.0-4.8 Abs Monocytes 0.4 10^3/uL Normal 0-0.8 Abs Eosinophils 0.2 10^3/uL Normal 0-0.6 Abs Basophils 0 10^3/uL Normal 0-0.2 Abs Nucleated RBC 0 10^3/uL Normal Granulocyte % 54.7 % Normal 38-83 Lymphocyte % 32.1 % Normal 25-47 Monocyte % 8.3 % Normal 1-9 Eosinophil % 4.3 % Normal 0-6 Basophil % 0.6 % Normal 0-2 Nucleated Red Blood Cells % 0 Normal Laboratory test 01/11/2015 [facility] TSH (Thyroid 2.19 Normal 0.34-5.[address] Stim Horm) ?IU/[place] [address] [phone] Peyton (Antinuclear Antibodies) Negative Normal Negative Urine Culture And 11/01/2014 [facility] Urine Culture (SEE NOTE ) [address] [place] [address] [phone] Ua Routine 11/01/2014 [facility] Ua Specific 1.005 [place] Ua PH 5 Ua Color yellow Ua Appera clear Ua WBC negative Ua Protein negative Ua Glucose negative Ua Ketones trace Ua Bilirubin negative Ua Urobilinogen normal Ua Nitrite negative Ua Occult Blood negative Urine Culture And 10/24/2014 [facility] Urine Culture (SEE [address] NOTE) [place] [address] [phone] Lipid Profile 02/16/2014 [facility] Triglycerides 86 mg/dL Normal 34, 35 (Trig/Chol/HDL) [address] [place] [address] [phone] Cholesterol 166 mg/dL Normal 36 HDL Cholesterol 60.5 mg/dL Normal 37 LDL Cholesterol 88 mg/dL Normal 38 Laboratory test 02/16/2014 [facility] Glucose 101 mg/dL High 70-100 39 finding [address] [place] [address] [phone] 1 [id number] 2 SEE RESULT BELOW Name: KATHLEEN MASON : [address]: Shahzad Silva MD Acct: [id number] Unit: [id number] AGE: 58 Location: [facility] Re02/18/19 SEX: F Status: DEP ER SPEC: [id number] KIRILL: 02/18/[address] [facility] [address]: Shahzad Silva MD REQ: [id number] RECD: 02/18/19 STATUS: RADHA HART DR: [facility] Rosita King MD _ SOURCE: URINE SPDESC: ORDERED: Urine Culture COMMENTS: [id number] Procedure Result Reported Site Urine Culture Final 02/20/19- 0856 ML Organism 1 ESCHERICHIA COLI [place] Count >100,000 (Many) CFU/ML 1. ESCHERICHIA COLI [...] . END OF REPORT DEPARTMENT OF PATHOLOGY, [address] [place] [address] Lalo Rajan M.D. Director [facility] # [id number] 3 Desirable: <150 Borderline High: 150-199 High: 200-499 Very High: >500 4 Desirable: <200 Borderline High: 200-239 High: >239 5 Low: <40 Desirable: 40-60 High: >60 6 Desirable: <100 Near Optimal: 100-129 Borderline High: 130-159 High: 160-189 Very High: >189 7 [id number] 8 SEE RESULT BELOW Name: KATHLEEN MASON : [address]: Juan Coon MD Acct: [id number] Unit: [id number] AGE: 57 Location: [facility] Re03/07/18 SEX: F Status: DEP ER SPEC: [id number] KIRILL: 03/07/18-[address] [facility] [address]: Kathleen Erazo NP REQ: [id number] RECD: 03/07/18 STATUS: RADHA HART DR: Rosita Coon MD _ S[facility]: [facility] ORDERED: Urine Culture COMMENTS: [id number] Procedure Result Reported Site Urine Culture Final 03/09/18- 904 ML Organism 1 ESCHERICHIA COLI [place] Count >100,000 (Many) CFU/ML 1. ESCHERICHIA COLI M.I.C. RX --------- ------ Ampicillin >=32 R Cefazolin <=4 S Cefepime <=1 S Ceftriaxone <=1 S Ciprofloxacin 1 S Gentamicin <=1 S Levofloxacin 1 S Meropenem <=0.25 S Nitrofurantoin <=16 S Tetracycline <=1 S Pipercillin/Tazobactam <=4 S Trimethoprim/Sulfamethoxazole >=320 R Amoxicillin/Clavulanic Acid 4 S Aztreonam <=1 S Contact the Microbiology Department for any additional antibiotic reporting. * ML - Main Lab . END OF REPORT DEPARTMENT OF PATHOLOGY, [address] [place] [address] Lalo Rajan M.D. Director [facility] # [id number] 9 [id number] 10 SEE RESULT BELOW Name: KATHLEEN MASON : [address]: Juan Rose III, MD Acct: [id number] Unit: [id number] AGE: 57 Location: [facility] Re06/24/17 SEX: F Status: REG REF SPEC: [id number] KIRILL: 06/24/17-[address]: Juan Rose III, MD REQ: [id number] RECD: 06/24/17 STATUS: COMP _ SOURCE: URINE SPDESC: ORDERED: Urine Culture COMMENTS: [id number] QUERIES: Urine Source: Random Procedure Result Reported Site Urine Culture Final 06/26/17- 0829 ML Organism 1 ESCHERICHIA COLI [place] Count >100,000 (Many) CFU/ML 1. ESCHERICHIA COLI M.I.C. RX --------- ------ Ampicillin >=32 R Cefazolin <=4 S Cefepime <=1 S Ceftriaxone <=1 S Ciprofloxacin 1 S Gentamicin <=1 S Levofloxacin 1 S Meropenem <=0.25 S Nitrofurantoin <=16 S Tetracycline >=16 R Pipercillin/Tazobactam <=4 S Trimethoprim/Sulfamethoxazole >=320 R Amoxicillin/Clavulanic Acid 8 S Aztreonam <=1 S Contact the Microbiology Department for any additional antibiotic reporting. * ML - MAIN LAB ([facility]) . END OF REPORT * ML = Testing performed at Main Lab DEPARTMENT OF PATHOLOGY, [address] [place] [address] Lalo Rajan M.D. Director [facility] # [id number] 11 Fairground Operator: [id number] 13 SEE RESULT BELOW Name: KATHLEEN MASON : [address]: Tracey Marsh MD Acct: [id number] Unit: [id number] AGE: 56 Location: [facility] Re03/20/17 SEX: F Status: DEP ER SPEC: [id number] KIRILL: 03/20/[address] [facility] [address]: Tracey Marsh MD REQ: [id number] RECD: 03/20/17 STATUS: RADHA HART DR: [facility] Rosita King MD _ SOURCE: URINE SPDESC: ORDERED: Urine Culture COMMENTS: [id number] Procedure Result Reported Site Urine Culture Final 03/22/17- 817 ML Organism 1 ESCHERICHIA COLI [place] Count 10-25,000 (Moderate) CFU/ML 1. ESCHERICHIA COLI M.I.C. RX --------- ------ Ampicillin >=32 R Cefazolin <=4 S Cefepime <=1 S Ceftriaxone <=1 S Ciprofloxacin 1 S Gentamicin <=1 S Levofloxacin 1 S Meropenem <=0.25 S Nitrofurantoin <=16 S Tetracycline >=16 R Pipercillin/Tazobactam <=4 S Trimethoprim/Sulfamethoxazole >=320 R Amoxicillin/Clavulanic Acid 4 S Aztreonam <=1 S Contact the Microbiology Department for any additional antibiotic reporting. * ML - MAIN LAB ([facility]) . END OF REPORT * ML = Testing performed at Main Lab DEPARTMENT OF PATHOLOGY, [address] [place] [address] Lalo Rajan M.D. Director [facility] # [id number] 14 Because ethnic data is not always readily available, this report includes an eGFR for both -Americans and non- Americans. The National Kidney Disease Education Program (NKDEP) does not endorse the use of the MDRD equation for patients that are not between the ages of 18 and 70, are , have extremes of body size, muscle mass, or nutritional status, or are non- or non-. According to the National Kidney Foundation, irrespective of diagnosis, the stage of the disease is based on the level of kidney function: Stage Description GFR(mL/min/1.73 m(2)) 1 Kidney damage with normal or decreased GFR 90 2 Kidney damage with mild decrease in GFR 60-89 3 Moderate decrease in GFR 30-59 4 Severe decrease in GFR 15-29 5 Kidney failure <15 (or dialysis) 15 Acute inflammation: >10.00 16 FASTING 10 HOUR 17 Desirable <150 Borderline high 150-199 High 200-499 Very High >500 18 Desirable <200 Borderline high 200-239 High >239 19 Low <40 Desirable: 40-60 High: >60 20 Desirable: <100 mg/dL Near Optimal: 100-129 mg/dL Borderline High: 130-159 mg/dL High: 160-189 mg/dL Very High: >189 mg/dL 21 Desirable <150 Borderline high 150-199 High 200-499 Very High >500 22 Desirable <200 Borderline high 200-239 High >239 23 Low <40 Desirable: 40-60 High: >60 24 Desirable: <100 mg/dL Near Optimal: 100-129 mg/dL Borderline High: 130-159 mg/dL High: 160-189 mg/dL Very High: >189 mg/dL 25 The high-risk HPV types detected by the assay include: 16, 18, 31, 33, 35, 39, 45, 51, 52, 56, 58, 59, 66, and 68. 26 SEE RESULT BELOW Name: KATHLEEN MASON : [address]: Rosita King MD Acct: [id number] Unit: [id number] AGE: 54 Location: [facility] Re05/31/15 SEX: F Status: REG REF SPEC: [id number] KIRILL: 05/31/15-[address] [facility] [address]: Rosita King MD REQ: [id number] RECD: 05/31/15 STATUS: SOUT _ ORDERED: IMAGE ANALYSIS, HPV/Thin Prep, HPV 16/18 GENE FINAL DIAGNOSIS Negative for Intraepithelial lesion or Malignancy A. Ectocervical/Endocervical Specimen Adequacy: Satisfactory of evaluation Transformation zone component identified Patient Information: HPV: High risk HPV RNA testing regardless of pap results. HPV 16/18 Genotype for HPV pos Actual Specimen Date: 05/31/15 Date Time Test Result Flag (u) Normal Range 05/31/15 1036 HPV RNA RFLX GE Negative Negative The high-risk HPV types detected by the assay include: 16, 18, 31, 33, 35, 39, 45, 51, 52, 56, 58, 59, 66, and 68. Signed (signature on file) Xavier Jenkins 06/01/15 7303 This Pap test was evaluated with the assistance of the Turned On DigitalPrep Test Imaging System. Due to cytologic findings at the recruitment specialist microscope, comprehensive manual rescreening by a Wax Pattern Repairer may be required. The Pap Smear is a screening test designed to aid in the detection of premalignant and malignant conditions of the uterine cervix. It is not a diagnostic procedure and should not be used as the sole means of detecting cervical cancer. Both false- positive and false- negative reports do occur. Depending on your risk status, a Pap smear should be obtained and evaluated every 1-3 years. END OF REPORT * ML = Testing performed at Main Lab DEPARTMENT OF PATHOLOGY, [address] [place] [address] Lalo Rajan M.D. Director [facility] # [id number] 27 Desirable <150 Borderline high 150-199 High 200-499 Very High >500 28 Desirable <200 Borderline high 200-239 High >239 29 Low <40 Desirable: 40-60 High: >60 30 Desirable: <100 mg/dL Near Optimal: 100-129 mg/dL Borderline High: 130-159 mg/dL High: 160-189 mg/dL Very High: >189 mg/dL 31 Because ethnic data is not always readily available, this report includes an eGFR for both -Americans and non- Americans. The National Kidney Disease Education Program (NKDEP) does not endorse the use of the MDRD equation for patients that are not between the ages of 18 and 70, are , have extremes of body size, muscle mass, or nutritional status, or are non- or non-. According to the National Kidney Foundation, irrespective of diagnosis, the stage of the disease is based on the level of kidney function: Stage Description GFR(mL/min/1.73 m(2)) 1 Kidney damage with normal or decreased GFR 90 2 Kidney damage with mild decrease in GFR 60-89 3 Moderate decrease in GFR 30-59 4 Severe decrease in GFR 15-29 5 Kidney failure <15 (or dialysis) 32 RUN DATE: 11/04/14 [facility] LAB LIVE PAGE 1 RUN TIME: [address] [place], [place] [address] Specimen Inquiry Name: KATHLEEN MASON : [address]: Rosita King MD Acct: [id number] Unit: [id number] AGE: 54 Location: [facility] Re11/01/14 SEX: F Status: REG REF SPEC: [id number] KIRILL: 11/01/14-[address]: Rosita King MD REQ: [id number] RECD: 11/01/14 STATUS: COMP _ SOURCE: URINE SPDESC: ORDERED: Urine Culture QUERIES: Provider Requisition # [id number] Procedure Result Verified Site Urine Culture Final 11/04/14- 1032 L Organism 1 NORMAL RAFI [place] Count 10-25,000 (Moderate) CFU/ML END OF REPORT * ML = Testing performed at Main Lab DEPARTMENT OF PATHOLOGY, [facility] [employer] [place] [address] Lalo Rajan M.D. Director [facility] # [id number] 33 RUN DATE: 10/26/14 [facility] LAB LIVE PAGE 1 RUN TIME: 0843 [facility] [employer] [place], [place] [address] Specimen Inquiry Name: KATHLEEN MASON : [address]: Sahil Valencia MD Acct: [id number] Unit: [id number] AGE: 54 Location: [facility] Re10/24/14 SEX: F Status: DEP ER SPEC: [id number] KIRILL: 10/24/[address] [facility] [address]: Sahil Valencia MD REQ: [id number] RECD: 10/24/14 STATUS: RADHA HART DR: [facility] Rosita King MD _ SOURCE: URINE SPDESC: ORDERED: Urine Culture Procedure Result Verified Site Urine Culture Final 10/26/14- 0843 ML Organism 1 ESCHERICHIA COLI [place] Count 75-100,000 (Many) CFU/ML 1. ESCHERICHIA COLI M.I.C. RX --------- ------ Ampicillin >=32 R Cefazolin <=4 S Cefepime <=1 S Ceftriaxone <=1 S Ciprofloxacin >=4 R Gentamicin >=16 R Levofloxacin >=8 R Meropenem <=0.25 S Nitrofurantoin <=16 S Tetracycline <=1 S Pipercillin/Tazobactam <=4 S Trimethoprim/Sulfamethoxazole <=20 S Amoxicillin/Clavulanic Acid 8 S Aztreonam <=1 S Contact the Microbiology Department for any additional antibiotic reporting. END OF REPORT * ML = Testing performed at Main Lab DEPARTMENT OF PATHOLOGY, [address] [place] [address] Lalo Rajan M.D. Director [facility] # [id number] 34 FASTING 35 Desirable <150 Borderline high 150-199 High 200-499 Very High >500 36 Desirable <200 Borderline high 200-239 High >239 37 Low <40 Desirable: 40-60 High: >60 38 Desirable <100 Near Optimal 100-129 Borderline high 130-159 High 160-189 Very High >189 39 FASTING Procedures Date Code Description Status 07/02/2018 [id number] Mammogram Completed 06/09/2018 59773 Admin & Interp Of Health Risk Assessment w/ Patient Completed 06/28/2017 [id number] Mammogram Completed 06/06/2017 47461 Admin & Interp Of Health Risk Assessment w/ Patient Completed 07/22/2015 [id number] Mammogram Completed 04/20/2013 [id number] Mammogram Completed 02/19/2013 [id number] Bone Mineral Density Test Completed 10/09/2010 [id number] Colonoscopy Completed 09/03/2007 25436 ECHO/Stress Completed 09/03/2007 01040 ECHO/Stress Completed 09/03/2007 47700 ECHO/Stress Completed 09/03/2007 75315 Stress Test Completed 09/03/2007 80058 Stress Test Completed Encounters Type Date Location Provider Dx Diagnosis Office Visit 12/08/2018 [facility] Popeye Landry NP M25.511 [facility] 06/09/2018 [facility] Rosita King Z00.00 Encntr for 9:20a Medicine - Anoop Marr general adult medical exam w/o abnormal findings N95.9 Unspecified menopausal and perimenopausal disorder Z12.31 Encntr screen mammogram for malignant neoplasm of breast R21 Rash and other nonspecific skin eruption Office Visit 06/24/2017 Edwina [facility] Juan Russell R30.0 Dysuria 3:20p Medicine-Harry Rose M.D. Office Visit 06/06/2017 [facility] Medicine - Rosita Z00.00 Encntr for 9:20a Anoop King M.D. general adult medical exam w/o abnormal findings Z12.31 Encntr screen mammogram for malignant neoplasm of breast Office Visit 02/07/2017 9:00a [facility] Rosita M54.9 Dorsalgia, Sarah King M.D. unspecified [facility] Office Visit 11/23/2016 9:00a [facility] Rosita M54.16 Radiculopathy , Sarah King M.D. lumbar region [facility] M54.9 Dorsalgia, unspecified Office Visit 06/04/2016 2:40p [facility] Rosita Z00.00 Encntr for Medicine - Anoop King M.D. general adult medical exam w/o abnormal findings H81.311 Aural vertigo, right ear Z12.31 Encntr screen mammogram for malignant neoplasm of breast Office Visit 06/01/2016 4:20p [facility] Theodora Robert, H81.11 Benign Medicine - N.P. paroxysmal C[facility]ob vertigo, right ear Office Visit 04/26/2016 8:40a [facility] Popeye Landry NP M25.562 Pain in left Medicine - knee [facility] Office Visit 10/21/2015 2:40p [facility] Paulo Moreno, R05 Cough Medicine Guillermo Marr Ccmob Office Visit 05/31/2015 9:00a [facility] Rosita Z12.31 Encntr screen Sarah King M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 Allergic Cause Unspec 493.90 Asthma Unspec W/O Status Asthmaticus V05.3 Viral Hepatitis Vaccination & Inoculation 493.92 Asthma Unspec W/ Acute Exacerbation Office Visit 02/23/2014 3:00p [facility] Rosita V70.0 Examination Medicine - Justa King [facility] V65.49 Counseling Other Spec 238.2 Neoplasm Uncertain Skin V05.3 Viral Hepatitis Vaccination & Inoculation Office Visit 11/11/2012 9:15a [facility] Mcghee M.D. 724.3 Sciatica C.M.A. 840.8 Sprains & Strains Shoulder & Upper Arm Other Spec Sites Plan of Treatment Future Appointment(s):09/03/2019 8:00 am - Rosita King M.D. at [facility] Internal Medicine - [facility]04/08/2019 - Popeye Landry, NPM25.511 Pain in right shoulderNew Medication:Diclofenac Sodium 1 % - apply 2 grams to affected area twice dailyComments:I have prescribed the Voltaren that we discussed. Start using that twice daily.I have referred you to orthopedics for further evaluation.Referral:Jorge Alberto Montilla MD, Surgery,Orthopedic
[2019-05-24 09:14] VITALS: BP 129/79
--- NOTE | 2019-05-24 09:46 | UC ---
Complaint Female HPI - HPI Summary HPI Summary: started yesterday with urinary burning, last ed all day, and today had burning and frequency has tried no treatment but is drinking more fluids - History Of Current Complaint Chief Complaint: UCGU Stated Complaint: URINARY Time Seen by Provider: 05/24/19 09:18 Hx Obtained From: Patient ?: No Onset/Duration: Gradual Onset Timing: Constant Severity Initially: Mild Pain Intensity: 0 Character: Burning Aggravating Factor(s): Urination Alleviating Factor(s): Nothing Associated Signs And Symptoms: Positive: Negative. Negative: Fever, Back Pain, Vaginal Bleeding/Discharge, Nausea Related Hx: Similar Episode/Dx as: - UTI - Allergies/Home Medications Allergies/Adverse Reactions: Allergies Allergy/AdvReac Type Severity Reaction Status Date / Time SULFA ANTIBIOTICS Allergy Rash Uncoded 05/24/19 09:09 PMH/Surg Hx/FS Hx/Imm Hx Previously Healthy: Yes Cardiovascular History: Hypertension Respiratory History: Asthma - Surgical History Surgical History: Yes Surgery Procedure, Year, and Place: APPENDECTOMY 64; CHOLECYSECTOMY 90'S; - Family History Known Family History: Positive: None Negative: Cardiac Disease, Hypertension, Diabetes - Social History Occupation: Employed Full-time Lives: With Family Alcohol Use: Weekly Substance Use Type: None Smoking Status (MU): Never Smoked Tobacco - Immunization History Vaccination Up to Date: Yes Review of Systems All Other Systems Reviewed And Are Negative: Yes Constitutional: Positive: Negative. Negative: Fever, Chills Skin: Positive: Negative Respiratory: Positive: Negative Cardiovascular: Positive: Negative Genitourinary: Positive: Dysuria, Frequency. Negative: Hematuria, Vaginal/ Penile Burning, Vaginal/Penile Discharge Neurological: Positive: Negative Psychological: Positive: Negative Is Patient Immunocompromised?: No Physical Exam Triage Information Reviewed: Yes Appearance: Well-Appearing, No Pain Distress, Well-Nourished Vital Signs: Initial Vital Signs Temp 97.9 F 05/24/19 09:10 Pulse 63 05/24/19 09:10 Resp 16 05/24/19 09:10 BP 129/79 05/24/19 09:10 Pulse Ox 100 05/24/19 09:10 Vital Signs Reviewed: Yes Neck exam: Normal Respiratory Exam: Normal Respiratory: Positive: Lungs clear Cardiovascular Exam: Normal Cardiovascular: Positive: RRR Abdominal Exam: Normal Abdomen Description: Positive: Nontender, No Organomegaly, Soft. Negative: CVA Tenderness (R), CVA Tenderness (L) Bowel Sounds: Positive: Present Psychological Exam: Normal Complaint Female Dx - Differential Dx/Diagnosis Differential Diagnosis/HQI/PQRI: Ureteral Stone, Urinary Tract Infection, Other - vaginitis Provider Diagnosis: UTI (urinary tract infection) Discharge ED - Sign-Out/Discharge Documenting (check all that apply): Patient Departure All imaging exams completed and their final reports reviewed: No Studies - Discharge Plan Condition: Good Disposition: HOME Prescriptions: Ciprofloxacin HCl 500 mg PO BID #10 tablet Patient Education Materials: Urinary Tract Infection in Women (ED) Referrals: Rosita King MD [Primary Care Provider] - 2 Days (if symptoms no better) Additional Instructions: drink plenty of fluids start cipro antibiotic and take as directed follow-up with urine culture results - Billing Disposition and Condition Condition: GOOD Disposition: Home - Attestation Statements Provider Attestation: I was available for consult. This patient was seen by the [facility]. The patient was not presented to , seen by or examined by pa -Daphne Charles MD
--- NOTE | 2019-05-25 15:45 | UC ---
- Progress Note Progress Note: Final urine culture reviewed. Culture was negative. Will advise nursing to call and have patient discontinue cipro and follow up with PCP if symptoms persist. Course/Dx - Diagnoses Provider Diagnoses: UTI (urinary tract infection) Discharge ED - Sign-Out/Discharge Documenting (check all that apply): Post-Discharge Follow Up All imaging exams completed and their final reports reviewed: No Studies - Discharge Plan Condition: Good Disposition: HOME Prescriptions: Ciprofloxacin HCl 500 mg PO BID #10 tablet Patient Education Materials: Urinary Tract Infection in Women (ED) Referrals: Rosita King MD [Primary Care Provider] - 2 Days (if symptoms no better) Additional Instructions: drink plenty of fluids start cipro antibiotic and take as directed follow-up with urine culture results - Billing Disposition and Condition Condition: GOOD Disposition: Home
== END 2019-05-24 09:54 | disposition home or self-care (01) ==
LOC: UCEAST 09:05
DX: N39.0 Urinary tract infection, site not specified (principal); I10 Essential (primary) hypertension; J45.909 Unspecified asthma, uncomplicated; Z88.2 Allergy status to sulfonamides
CPT/HCPCS: 81003; 87086; 99212; G0463